=== PATIENT | female | born 1970 | race Caucasian/White ===

== ENCOUNTER 2022-04-06 18:41 | Emergency (ER) | payer SELFPAY ==
[2022-04-06] VITALS (7 sets, daily range): BP systolic 119–149; BP diastolic 82–93
[~2022-04-06] VITALS: Ht 154.9 cm; Wt 61.8 kg
== END 2022-04-06 20:28 | disposition home or self-care (01) | DRG 563 ==
LOC: ED 18:41
PROC: 2W3QX1Z Immobilization of Right Lower Leg using Splint (ICD-10-PCS; principal; 2022-04-06)
DX: S82.61XA Displaced fracture of lateral malleolus of right fibula, initial encounter for closed fracture (principal); X50.0XXA Overexertion from strenuous movement or load, initial encounter; Y93.89 Activity, other specified; Y92.009 Unspecified place in unspecified non-institutional (private) residence as the place of occurrence of the external cause